=== PATIENT | female | born 1985 | race Caucasian/White ===

== ENCOUNTER 2019-10-11 17:05 | Outpatient (CLI) | payer BC | END 2019-10-11 19:48 | disposition home or self-care (01) | LOC: SLB 17:05 | PROVIDERS: ATTEND Specialist | DX: Z11.59 Encounter for screening for other viral diseases (principal) | CPT/HCPCS: U0003-CS ==

== ENCOUNTER 2019-10-17 17:28 | Inpatient (IN) | payer BC ==
[~2019-10-17] VITALS: Ht 162.6 cm; Wt 106.6 kg
[2019-10-17] MEDS ORDERED: OXYTOCIN/0.9 % SODIUM CHLORIDE 1,000 ML IV SCH (17:54)
[2019-10-17] MEDS ORDERED: TERBUTALINE SULFATE 1 MG/ML VIAL SUBCUT ONE (18:00)
[2019-10-17 18:18] LABS: BASOPHILS # (AUTO) 0.1 K/uL (0.0-0.2); BASOPHILS % (AUTO) 0.7 % (0.0-2.0); EOSINOPHILS # (AUTO) 0.1 K/uL (0.0-0.4); EOSINOPHILS % (AUTO) 0.7 % (0.0-4.0); HEMOGLOBIN 11.5 g/dL (12.0-16.0); LYMPHOCYTES # (AUTO) 0.9 K/uL (1.0-5.5); LYMPHOCYTES % (AUTO) 8.7 % (20.5-51.5); MEAN CORPUSCULAR HEMOGLOBIN 27 pg (27-31); MEAN CORPUSCULAR HGB CONC 32 % (32-36); MEAN CORPUSCULAR VOLUME 85 fL (79.0-98.0); MONOCYTES # (AUTO) 0.6 K/uL (0.0-1.0); MONOCYTES % (AUTO) 6.1 % (1.7-9.3); NEUTROPHILS # (AUTO) 8.3 K/uL (1.8-7.7); NEUTROPHILS % (AUTO) 83.8 % (40.0-70.0); PLATELET COUNT (AUTO) 232 K/uL (130-430); RED BLOOD CELL COUNT(AUTO) 4.24 MIL/uL (4.2-6.2); RED CELL DISTRIBUTION WIDTH 13.4 % (9.0-15.0); WHITE BLOOD COUNT (AUTO) 9.9 K/uL (4.8-10.8)
[2019-10-17 20:27] VITALS: BP_SYST 135
[2019-10-17] MEDS ORDERED: LR 1,000 ML IV ONE (20:28)
[2019-10-17] MEDS ORDERED: MORPHINE SULFATE 10 MG/ML VIAL IVP PRN (20:30)
[2019-10-18] MEDS: LR 1,000 ML IV SCH ×3 (00:14→11:00)
[2019-10-18] MEDS ORDERED: ONDANSETRON HCL 4 MG/2 ML VIAL IVP PRN ×2 (03:30→03:45)
[2019-10-18] MEDS ORDERED: FENT2mCg/mL-ROPIVA0.2%/NS EPID 200 ML EP SCH (03:45)
[2019-10-18] MEDS ORDERED: DIPHENHYDRAMINE INJ 50 MG/ML VIAL IVP PRN (03:45)
[2019-10-18] MEDS ORDERED: NALOXONE HCL 0.4 MG/ML AMP (NARCAN) IVP PRN (03:45)
[2019-10-18] MEDS ORDERED: CEFAZOLIN 2 GM IVPB PREMIX 50 ML IV ONE (11:00)
[2019-10-18] MEDS ORDERED: AMPICILLIN SODIUM 2 GM in NS 100 ML IV ONE (11:00)
[2019-10-18] MEDS ORDERED: AMPICILLIN SODIUM 2 GM VIAL ONE (11:10)
[2019-10-18] MEDS ORDERED: OXYTOCIN 10 UNIT/ML VIAL ONE ×2 (12:09→12:30)
[2019-10-18 12:24] VITALS: BP_SYST 101
[2019-10-18] MEDS ORDERED: ONDANSETRON HCL 4 MG/2 ML VIAL ONE (12:30)
[2019-10-18] MEDS ORDERED: MORPHINE SULFATE 10MG/10ML PF AMP ONE (12:30)
[2019-10-18] MEDS ORDERED: NS IRRIG SOLN 1000 ML IR ONE (12:30)
[2019-10-18] MEDS ORDERED: METOCLOPRAMIDE HCL 10 MG/2 ML VIAL ONE (12:30)
[2019-10-18] MEDS ORDERED: LR 1,000 ML IV.SOLN IV ONE (12:30)
[2019-10-18] MEDS ORDERED: DIPH-TET-PERTUS Vaccine 0.5 ML VIAL (ADACEL) I.M. PRN (15:00)
[2019-10-18] MEDS ORDERED: BISACODYL 10 MG/SUPPOSITORY RC PRN (15:00)
[2019-10-18] MEDS ORDERED: MEASLES,MUMPS&RUBELLA VACC/PF 12500 UNIT/0.5 ML VIAL SUBQ PRN (15:00)
[2019-10-18] MEDS ORDERED: LR 1,000 ML IV SCH (15:00)
[2019-10-18] MEDS ORDERED: SIMETHICONE 80 MG TAB.CHEW PO PRN (15:00)
[2019-10-18] MEDS ORDERED: LANOLIN 7 GM OINT. TP PRN (15:00)
[2019-10-18] MEDS ORDERED: ANUSOL 1 EA SUPP.RECT (PREPARATION H) RC PRN (15:00)
[2019-10-18] MEDS ORDERED: OXYTOCIN/0.9 % SODIUM CHLORIDE 1,000 ML IV ONE (15:00)
[2019-10-18] MEDS ORDERED: SENNOSIDES/DOCUSATE SODIUM 1 TAB TABLET(SENOKOT-S) PO PRN (15:00)
[2019-10-18] MEDS ORDERED: CEFAZOLIN 1 GM IVPB PREMIX 50 ML IV SCH (17:00)
[2019-10-18] MEDS: KETOROLAC TROMETHAMINE 30 MG VIAL IM SCH (17:23)
[2019-10-18] MEDS ORDERED: TEMAZEPAM 15 MG CAPSULE PO PRN (21:00)
[2019-10-18] MEDS: IBUPROFEN 600 MG TABLET PO SCH (23:29)
[2019-10-19] MEDS: KETOROLAC TROMETHAMINE 30 MG VIAL IM SCH ×2 (06:00→12:00)
[2019-10-19 07:03] LABS: BASOPHILS # (AUTO) 0.2 K/uL (0.0-0.2); BASOPHILS % (AUTO) 1.3 % (0.0-2.0); EOSINOPHILS # (AUTO) 0.1 K/uL (0.0-0.4); EOSINOPHILS % (AUTO) 0.4 % (0.0-4.0); HEMATOCRIT 26.7 % (36-48); HEMOGLOBIN 8.5 g/dL (12.0-16.0); LYMPHOCYTES # (AUTO) 0.7 K/uL (1.0-5.5); LYMPHOCYTES % (AUTO) 5.6 % (20.5-51.5); MEAN CORPUSCULAR HEMOGLOBIN 27 pg (27-31); MEAN CORPUSCULAR HGB CONC 32 % (32-36); MEAN CORPUSCULAR VOLUME 86 fL (79.0-98.0); MONOCYTES # (AUTO) 0.5 K/uL (0.0-1.0); MONOCYTES % (AUTO) 4.2 % (1.7-9.3); NEUTROPHILS # (AUTO) 11.1 K/uL (1.8-7.7); NEUTROPHILS % (AUTO) 88.5 % (40.0-70.0); PLATELET COUNT (AUTO) 182 K/uL (130-430); RED BLOOD CELL COUNT(AUTO) 3.12 MIL/uL (4.2-6.2); RED CELL DISTRIBUTION WIDTH 14.1 % (9.0-15.0); WHITE BLOOD COUNT (AUTO) 12.5 K/uL (4.8-10.8)
[2019-10-19] MEDS ORDERED: IBUPROFEN 600 MG TABLET PO ONE (12:00)
[2019-10-19] MEDS: DOCUSATE SODIUM 100 MG CAPSULE PO PRN ×2 (18:12→23:03)
[2019-10-19] MEDS ORDERED: OXYCODONE/ACETAMINOPHEN *10*mg/325 mg TABLET ONE (22:28)
[2019-10-19] MEDS: IBUPROFEN 600 MG TABLET PO SCH (23:03)
[2019-10-20] MEDS: IBUPROFEN 600 MG TABLET PO SCH ×3 (05:49→12:25)
[2019-10-20] MEDS ORDERED: OXYCODONE/ACETAMINOPHEN 5-325 TABLET PO PRN (12:15)
[2019-10-20] MEDS: OXYCODONE/ACETAMINOPHEN 5-325 TABLET PO PRN ×2 (12:25→15:35)
[2019-10-20] MEDS ORDERED: OXYCODONE/ACETAMINOPHEN 5-325 TABLET ONE (12:27)
[2019-10-20] MEDS: DOCUSATE SODIUM 100 MG CAPSULE PO PRN (15:35)
== END 2019-10-20 15:40 | disposition home or self-care (01) | DRG 788 ==
LOC: SPU 17:28
PROVIDERS: ADMIT Specialist; ATTEND Specialist
PROC: 10D00Z1 Extraction of Products of Conception, Low, Open Approach (ICD-10-PCS; principal; 2019-10-19)
DX: O62.2 Other uterine inertia (principal); O76 Abnormality in fetal heart rate and rhythm complicating labor and delivery; O69.1XX0 Labor and delivery complicated by cord around neck, with compression, not applicable or unspecified; O34.211 Maternal care for low transverse scar from previous cesarean delivery; O33.9 Maternal care for disproportion, unspecified; Z37.0 Single live birth; Z3A.38 38 weeks gestation of pregnancy
CPT/HCPCS: 36415; 85025; 86592; 86886; 86900; 86901; 90715; J0290; J0690; J1885; J2270; J2274; J2405; J2590; J2765; J7120